=== PATIENT | female | born 1995 | race Two or more races ===

== ENCOUNTER 2025-01-02 17:29 | Inpatient (IN) | payer OTHER ==
[~2025-01-02] VITALS: Ht 152.4 cm; Wt 47.2 kg
[~2025-01-02 17:29] MED LIST: PIPERACILLIN /TAZOBACTAM 3.375 G in IV D5W 50 ML IV ONE
[2025-01-02] MEDS: IV NS 0.9% 1,000 ML BAG IV ONE (18:12)
[2025-01-02] MEDS ORDERED: ONDANSETRON HCL/PF 4 MG/2 ML VIAL ONE (18:12)
[2025-01-02] MEDS ORDERED: MORPHINE SULFATE INJ 2 MG/ML DISP.SYRIN ONE (18:12)
[2025-01-02 18:13] LABS: PLATELET COUNT (AUTO) 195 K/uL (150-450); RED BLOOD CELL COUNT(AUTO) 3.99 MIL/uL (4.0-5.2); RED CELL DISTRIBUTION WIDTH 14.3 % (11.5-15.0); WHITE BLOOD COUNT (AUTO) 11.5 K/uL (4.3-11.0)
[2025-01-02] MEDS: ONDANSETRON HCL/PF 4 MG/2 ML VIAL IVP ONE (18:19)
[2025-01-02] MEDS: MORPHINE SULFATE INJ 2 MG/ML DISP.SYRIN IV ONE (18:25)
[2025-01-02 18:40] LABS: APPEARANCE,URINE CLEAR (CLEAR); BLOOD, URINE 3+ Ery/uL (NEGATIVE); LEUKOCYTE ESTERASE ,URINE NEGATIVE (NEGATIVE); NITRITE, URINE NEGATIVE (NEGATIVE); UGLUCOSE NEGATIVE (NEGATIVE)
[2025-01-02 18:43] LABS: ASPARTATE AMINOTRANSFERASE 14.0 U/L (15-37); CALCIUM, SERUM 8.1 mg/dL (8.5-10.1); CREATININE 0.6 mg/dL (0.6-1.3); PREGNANCY TEST SERUM QUAN 0.0 mIU/mL (0-6); SODIUM SERUM 139.0 mmol/L (136-145); TOTAL PROTEIN, SERUM 6.7 g/dL (6.4-8.2); UREA NITROGEN, BLOOD 16.0 mg/dL (7-18)
[2025-01-02] MEDS ORDERED: IV NS 0.9% 250 ML IV ONE (19:04)
[2025-01-02] MEDS ORDERED: CT SWABBABLE VALVE TRANS SET 1 EA INFUS.SET MC ONE (19:04)
[2025-01-02] MEDS ORDERED: IOHEXOL-300 100 ML VIAL IV ONE (19:04)
[2025-01-02 19:47] LABS: ADD URINE CULTURE NO; SQUAMOUS EPITHELIAL CELL,UR Rare /HPF (None Seen)
[2025-01-02] MEDS ORDERED: PIPERACI/TAZO 3.375GM/D5W 50ML PB IV ONE (19:56)
[2025-01-02] MEDS: PIPERACILLIN /TAZOBACTAM 3.375 G in IV D5W 50 ML IV ONE (20:07)
[2025-01-02] MEDS ORDERED: ONDANSETRON HCL/PF 4 MG/2 ML VIAL IVP PRN (21:00)
[2025-01-02] MEDS ORDERED: ACETAMINOPHEN 650 MG/SUPP.RECT RC PRN (21:00)
[2025-01-02] MEDS ORDERED: MORPHINE SULFATE INJ 2 MG/ML DISP.SYRIN IV PRN ×2 (21:00)
[2025-01-02] MEDS ORDERED: TEMAZEPAM 7.5 MG CAPSULE PO PRN (21:30)
[2025-01-02 21:43] VITALS: BP 91/60; TEMP 97.9; O2SAT 99
[2025-01-02 21:45] VITALS: BP 91/60; TEMP 97.9; O2SAT 99
[2025-01-02] MEDS: IV D5/ 0.9% NACL 1,000 ML IV SCH (21:49)
[2025-01-02] MEDS: POTASSIUM CL. PREMIX PERIPHER. 50 ML IV SCH (22:20)
[2025-01-03] MEDS ORDERED: PIPERACI/TAZO 3.375GM/D5W 50ML PB IV ONE (01:44)
[2025-01-03] MEDS: PIPERACILLIN /TAZOBACTAM 3.375 G in IV D5W 50 ML IV ONE (01:48)
[2025-01-03 08:04] LABS: CALCIUM, SERUM 7.6 mg/dL (8.5-10.1); CREATININE 0.6 mg/dL (0.6-1.3); PHOSPHORUS 2.9 mg/dL (2.5-4.9); SODIUM SERUM 142.0 mmol/L (136-145); UREA NITROGEN, BLOOD 6.0 mg/dL (7-18)
[2025-01-03 08:10] LABS: PLATELET COUNT (AUTO) 184 K/uL (150-450); RED BLOOD CELL COUNT(AUTO) 3.93 MIL/uL (4.0-5.2); RED CELL DISTRIBUTION WIDTH 14.3 % (11.5-15.0); WHITE BLOOD COUNT (AUTO) 7.9 K/uL (4.3-11.0)
[2025-01-03] MEDS ORDERED: PREN1TAB81 PO (08:47)
[2025-01-03] MEDS: PIPERACILLIN /TAZOBACTAM 3.375 G in IV D5W 50 ML IV SCH (08:52)
[2025-01-03] MEDS: PANTOPRAZOLE 40 MG VIAL IV SCH (09:09)
[2025-01-03] MEDS ORDERED: LIDOCAINE HCL/MPF 1% 30 ML VIAL IJ ONE (11:06)
[2025-01-03] MEDS ORDERED: ANESTHESIA TRAY IN PYXIS 1 EA TRAY MC ONE (11:06)
[2025-01-03] MEDS ORDERED: BUPIVACAINE 0.5 % PF 150 MG/30 ML VIAL ONE (11:06)
[2025-01-03] MEDS ORDERED: MIDAZOLAM HCL 2 MG/2ML VIAL ONE (11:14)
[2025-01-03] MEDS ORDERED: FENTANYL PF 100MCG/2ML AMPUL ONE (11:14)
[2025-01-03] MEDS ORDERED: ROCURONIUM BROMIDE 50 MG/5 ML ONE (11:14)
[2025-01-03] MEDS ORDERED: FLUMAZENIL 0.5 MG VIAL ONE (12:53)
[2025-01-03] MEDS ORDERED: MORPHINE SULFATE INJ 2 MG/ML DISP.SYRIN IV PRN ×2 (13:30)
[2025-01-03] MEDS ORDERED: ONDANSETRON HCL/PF 4 MG/2 ML VIAL IVP PRN (13:30)
[2025-01-03 16:00] VITALS: BP 94/58; TEMP 97.5; O2SAT 100
[2025-01-03] MEDS: TRAMADOL HCL 50 MG TABLET PO SCH (16:17)
[2025-01-03 21:10] VITALS: BP 92/62; TEMP 97.7; O2SAT 98
[2025-01-04 06:52] LABS: PLATELET COUNT (AUTO) 148 K/uL (150-450); RED BLOOD CELL COUNT(AUTO) 3.22 MIL/uL (4.0-5.2); RED CELL DISTRIBUTION WIDTH 15.4 % (11.5-15.0); WHITE BLOOD COUNT (AUTO) 11.0 K/uL (4.3-11.0)
[2025-01-04 06:59] LABS: CALCIUM, SERUM 7.3 mg/dL (8.5-10.1); CREATININE 0.5 mg/dL (0.6-1.3); SODIUM SERUM 139.0 mmol/L (136-145); UREA NITROGEN, BLOOD 4.0 mg/dL (7-18)
[2025-01-04 07:30] VITALS: BP 89/61; TEMP 98.1; O2SAT 98
[2025-01-04 08:00] VITALS: BP 89/61; TEMP 98.1; O2SAT 98
[2025-01-04] MEDS: IV D5/ 0.9% NACL 1,000 ML IV PRN (09:21)
[2025-01-04 16:00] VITALS: BP 92/61; TEMP 98.1; O2SAT 100
[2025-01-04 20:00] VITALS: BP 94/74; TEMP 98.1; O2SAT 98
[2025-01-04] MEDS: POLYETHYLENE GLYCOL 3350 17 GM POWD.PACK PO SCH (22:09)
[2025-01-05 06:59] LABS: CALCIUM, SERUM 8.6 mg/dL (8.5-10.1); CREATININE 0.7 mg/dL (0.6-1.3); SODIUM SERUM 143.0 mmol/L (136-145); UREA NITROGEN, BLOOD 5.0 mg/dL (7-18)
[2025-01-05 07:09] LABS: PLATELET COUNT (AUTO) 233 K/uL (150-450); RED BLOOD CELL COUNT(AUTO) 4.07 MIL/uL (4.0-5.2); RED CELL DISTRIBUTION WIDTH 14.4 % (11.5-15.0); WHITE BLOOD COUNT (AUTO) 9.3 K/uL (4.3-11.0)
[2025-01-05 08:55] VITALS: BP 102/67; TEMP 98.2; O2SAT 98
[2025-01-05 16:33] VITALS: BP 96/63; TEMP 97.9; O2SAT 99
[2025-01-05 20:00] VITALS: BP 99/67; TEMP 97.5; O2SAT 95
[2025-01-06 07:25] LABS: PLATELET COUNT (AUTO) 256 K/uL (150-450); RED BLOOD CELL COUNT(AUTO) 4.13 MIL/uL (4.0-5.2); RED CELL DISTRIBUTION WIDTH 14.4 % (11.5-15.0); WHITE BLOOD COUNT (AUTO) 6.6 K/uL (4.3-11.0)
[2025-01-06 08:02] VITALS: BP 93/60; TEMP 98.1; O2SAT 99
[2025-01-06 08:16] VITALS: BP 93/60; TEMP 98.1; O2SAT 99
[2025-01-06 08:18] LABS: CALCIUM, SERUM 8.4 mg/dL (8.5-10.1); CREATININE 0.8 mg/dL (0.6-1.3); SODIUM SERUM 142.0 mmol/L (136-145); UREA NITROGEN, BLOOD 6.0 mg/dL (7-18)
[2025-01-06 08:29] LABS: PHOSPHORUS 3.6 mg/dL (2.5-4.9)
[2025-01-06] MEDS: PANTOPRAZOLE 40 MG TABLET.DR PO SCH (08:46)
[2025-01-06] MEDS ORDERED: METR500T PO (10:51)
[2025-01-06] MEDS ORDERED: CIPR500S2 PO (10:51)
[2025-01-06] MEDS: POTASSIUM CHLORIDE 20 MEQ TAB.PRT.SR PO SCH (12:04)
[2025-01-06 16:00] VITALS: BP 93/57; TEMP 98; O2SAT 100
[2025-01-06 16:41] VITALS: BP 93/57; TEMP 98; O2SAT 100
== END 2025-01-06 18:44 | disposition home or self-care (01) | DRG 233 ==
LOC: ER 17:35 → MED 21:17
PROVIDERS: ADMIT Registered Nurse Psychiatric/Mental Health; ATTEND Student in an Organized Health Care Education/Training Program
PROC: 0DTJ4ZZ Resection of Appendix, Percutaneous Endoscopic Approach (ICD-10-PCS; principal; 2025-01-03 09:30)
DX: K35.32 Acute appendicitis with perforation, localized peritonitis, and gangrene, without abscess (principal); R64 Cachexia; E43 Unspecified severe protein-calorie malnutrition; E83.51 Hypocalcemia; E88.09 Other disorders of plasma-protein metabolism, not elsewhere classified; K56.7 Ileus, unspecified; E44.1 Mild protein-calorie malnutrition; E87.6 Hypokalemia; K66.0 Peritoneal adhesions (postprocedural) (postinfection); Z98.42 Cataract extraction status, left eye; H26.9 Unspecified cataract
CPT/HCPCS: 36415; 76856-TC; 80048-TC; 80076-TC; 81001; 82962-TC; 83690-TC; 83735-TC; 84100-TC; 84702-TC; 85025-TC; 86850-TC; 87081-TC; 88304-TC; A4223; G0378; J1100; J1885; J2250; J2270; J2405; J2470; J2543; J2704; J3010; J3480; J3490; J7030; J7042; J7050; J7060; Q9967